=== PATIENT | female | born 1990 | race Caucasian/White ===

== ENCOUNTER 2021-07-05 07:38 | Outpatient (CLI) | payer BC ==
[2021-07-05 16:37] LABS: SARS-CoV-2 PCR by NAA Not Detected (NotDetected)
== END 2021-07-05 07:39 | disposition home or self-care (01) ==
LOC: CSHLAB 07:38
PROVIDERS: ATTEND Obstetrics & Gynecology
DX: Z20.822 Contact with and (suspected) exposure to COVID-19 (principal)
CPT/HCPCS: U0003; U0005

== ENCOUNTER 2021-07-09 05:30 | Inpatient (IN) | payer BC ==
[~2021-07-09 05:30] MED LIST: Butorphanol Tartrate 1 MG/ML VIAL SLOW IVP PRN; Carboprost 250 MCG/ML AMP IM PRN; Diphenoxylate HCl/Atropine Tablet PO PRN; HYDROcodone/Acetaminophen 5/325 mg Tablet PO PRN; Ibuprofen 800 MG TAB PO PRN; Lidocaine 1% (PF) 30 ML VIAL SC PRN; Methylergonovine 0.2 MG/ML VIAL IM PRN; Misoprostol 200 MCG TAB PR PRN; Ondansetron PF 4 MG/2 ML Vial IVP PRN; Promethazine HCl 25 MG/ML VIAL IM PRN; hydrALAZINE 20 MG/ML VIAL SLOW IVP PRN
[2021-07-09] MEDS ORDERED: NS w/ Oxytocin 30 units 500 ML IV SCH ×3 (06:00→18:55)
[2021-07-09] MEDS ORDERED: Penicillin G Potassium 5 MILL.UNITS in Sodium Chloride 0.9% 100 ML IVPB SCH (06:00)
[2021-07-09 07:09] VITALS: BMI 34.4
[2021-07-09 07:40] LABS: Hemoglobin 11.5 g/dL (12.0-15.5); Mean Corpuscular HGB CONC 33.9 g/dL (32.0-36.0); Mean Corpuscular Hemoglobin 28.4 pg (27.0-33.0); Mean Corpuscular Volume 83.7 fl (81.6-98.3); Mean Platelet Volume 10.3 fl (7.4-10.4); Platelet Count 224 10x3/uL (150-450); RBC Distribution Width 13.2 % (11.5-14.5); Red Blood Cell (RBC) Count 4.05 10x6/uL (3.90-5.03); White Blood Cell (WBC) Count 8.4 10x3/uL (3.5-10.5)
[2021-07-09] MEDS ORDERED: Bupivacaine 0.25% HCL 30 ML VIAL ONE (08:00)
[2021-07-09 09:22] LABS: Hep B Surf Ag Non-Reactive S/CO (NonReactive)
[2021-07-09 09:24] LABS: Syphilis Antibody Nonreactive (Nonreactive); Syphilis Antibody Index 0.06 S/CO (<1.00 Non-Reactive)
[2021-07-09 09:28] LABS: HBSAg Index 0.21 S/CO (0-0.99)
[2021-07-09] MEDS ORDERED: Fentanyl 2 mcg/Bup 0.1% Cadd 100 ML ONE (12:14)
[2021-07-09] MEDS: Penicillin G 2.5 MILL.units 2.5 MILL.UNITS in Premix Bag 1 BAG IVPB SCH ×3 (12:17→19:31)
[2021-07-09] MEDS ORDERED: Acetaminophen 325 MG TAB PO PRN (12:28)
[2021-07-09] MEDS ORDERED: Lactated Ringer's 500 ML IV PRN (12:28)
[2021-07-09] MEDS ORDERED: diphenhydrAMINE 50 MG/ML VIAL IVP PRN (12:28)
[2021-07-09] MEDS ORDERED: Ondansetron PF 4 MG/2 ML Vial IVP PRN (12:28)
[2021-07-09] MEDS ORDERED: Hydrocerin (Eucerin) Cream 120 gm Jar TOP PRN (12:28)
[2021-07-09] MEDS ORDERED: ePHEDrine Sulfate 50 MG/10 ML VIAL SLOW IVP PRN (12:28)
[2021-07-09] MEDS ORDERED: Naloxone HCl 0.4 mg/ml Vial IVP PRN ×2 (12:28)
[2021-07-09] MEDS ORDERED: Promethazine HCl 25 MG/ML VIAL IM PRN (12:28)
[2021-07-09] MEDS ORDERED: Communication Order-Pharmacy FS SCH (12:30)
[2021-07-09] MEDS ORDERED: Fentanyl 2 mcg/Bupivacaine 0.1% Cassette 100 ML EPIDURAL SCH (12:30)
[2021-07-09] MEDS: Lactated Ringer's 1,000 ML IV SCH ×2 (12:57→19:30)
[2021-07-09] MEDS ORDERED: hydrALAZINE 20 MG/ML VIAL SLOW IVP PRN (18:55)
[2021-07-09] MEDS ORDERED: Boostrix 0.5 ML (Tdap) VIAL IM ONE (18:55)
[2021-07-09] MEDS ORDERED: HYDROcodone/Acetaminophen 5/325 mg Tablet PO PRN ×2 (18:55)
[2021-07-09] MEDS ORDERED: Benzocaine-Menthol 82.5 ML CAN TOP PRN (18:55)
[2021-07-09] MEDS ORDERED: Lanolin Ointment 7 GM TUBE TOP PRN (18:55)
[2021-07-09] MEDS ORDERED: Misoprostol 200 MCG TAB VAG PRN (18:55)
[2021-07-09] MEDS ORDERED: Milk Of Magnesia 30 ML UDCUP PO PRN (18:55)
[2021-07-09] MEDS ORDERED: Methylergonovine 0.2 MG/ML VIAL IM PRN (18:55)
[2021-07-09] MEDS ORDERED: Bisacodyl 10 MG SUPP PR PRN (18:55)
[2021-07-09] MEDS: Docusate 100 MG CAP PO SCH (21:09)
[2021-07-09] MEDS: Ibuprofen 800 MG TAB PO SCH (21:09)
[2021-07-10] MEDS: Ibuprofen 800 MG TAB PO SCH ×2 (06:16→14:48)
[2021-07-10] MEDS: Ferrous Sulfate 325 MG TAB PO SCH ×2 (08:17→17:05)
[2021-07-10] MEDS ORDERED: Prenatal Vitamin 1 TAB PO SCH (09:00)
[2021-07-10] MEDS: Docusate 100 MG CAP PO SCH (09:13)
[2021-07-10 12:22] VITALS: BP 131/82; TEMP 98.6
== END 2021-07-10 17:45 | disposition home or self-care (01) | DRG 807 ==
LOC: CSHLD 05:38 → CSHPP 17:55
PROVIDERS: ADMIT Obstetrics & Gynecology; ATTEND Obstetrics & Gynecology
PROC: 10E0XZZ Delivery of Products of Conception, External Approach (ICD-10-PCS; principal; 2021-07-09)
PROC: 0KQM0ZZ Repair Perineum Muscle, Open Approach (ICD-10-PCS; 2021-07-09)
DX: O99.824 Streptococcus B carrier state complicating childbirth (principal); Z37.0 Single live birth; Z3A.40 40 weeks gestation of pregnancy; O26.893 Other specified pregnancy related conditions, third trimester; Z67.21 Type B blood, Rh negative; Z88.2 Allergy status to sulfonamides; O70.1 Second degree perineal laceration during delivery
CPT/HCPCS: 51702; 85027; 86780; 86850; 86900; 86901; 87340; J2540; J2590; J3490; J7120; S0020